=== PATIENT | female | born 1985 | race Caucasian/White ===

== ENCOUNTER 2017-08-25 09:29 | Day surgery (SDC) | payer OTHER ==
[~2017-08-25] VITALS: Ht 165.1 cm; Wt 109.0 kg
[~2017-08-25 09:29] MED LIST: BUPIVACAINE/PF-EPI 0.25% 1:200K ONE
[2017-08-25 09:55] VITALS: BP 119/79
[2017-08-25] MEDS ORDERED: LACTATED RINGERS 1,000 ML IV SCH ×2 (09:57→14:24)
[2017-08-25] MEDS ORDERED: FENTANYL PF 100 MCG/2ML ONE ×2 (10:25)
[2017-08-25] MEDS ORDERED: MIDAZOLAM 1 MG/ML, 2ML ONE (10:25)
[2017-08-25] MEDS ORDERED: BUPR-86 PO (10:30)
[2017-08-25] MEDS ORDERED: CETI10CA PO (10:30)
[2017-08-25] MEDS ORDERED: PLEASE ENTER HEIGHT AND WEIGHT MC SCH (10:30)
[2017-08-25 11:17] LABS: HCG UR OBC PASS
[2017-08-25 11:25] LABS: HEMATOCRIT 41.1 % (34.6-47.8); HEMOGLOBIN 13.8 g/dL (11.7-16.4); WHITE BLOOD COUNT 5.8 x10^3/uL (3.4-10)
[2017-08-25] MEDS ORDERED: SCOPOLAMINE PATCH, 1.5MG PATCH.TD72 TD ONE (11:47)
[2017-08-25] MEDS ORDERED: ACETAMINOPHEN 500 MG TABLET ONE (11:47)
[2017-08-25] MEDS ORDERED: KETOROLAC 30 MG/1 ML ONE (12:00)
[2017-08-25] MEDS ORDERED: ONDANSETRON 2MG/ML, 2ML ONE (12:00)
[2017-08-25] MEDS ORDERED: NEOSTIGMINE 1 MG/ML, 10ML ONE (12:00)
[2017-08-25] MEDS ORDERED: DEXAMETHASONE 4 MG/ML, 1ML ONE (12:00)
[2017-08-25] MEDS ORDERED: PROPOFOL 10 MG/ML, 20ML ONE (12:00)
[2017-08-25] MEDS ORDERED: SUCCINYLCHOLINE 20 MG/ML, 10ML ONE (12:00)
[2017-08-25] MEDS ORDERED: ROCURONIUM 10 MG/ML ONE (12:00)
[2017-08-25] MEDS ORDERED: GLYCOPYRROLATE 0.2MG/1ML, 5ML ONE (12:00)
[2017-08-25] MEDS ORDERED: CEFAZOLIN 1,000 MG ONE (12:00)
[2017-08-25] MEDS ORDERED: MEPERIDINE/PF 25MG/0.5ML IVPush PRN (12:30)
[2017-08-25] MEDS ORDERED: EPHEDRINE 50 MG/ML, 1ML IVPush PRN (12:30)
[2017-08-25] MEDS ORDERED: ONDANSETRON 2MG/ML, 2ML IVPush PRN ×2 (12:30→14:30)
[2017-08-25] MEDS ORDERED: METOPROLOL 1 MG/ML, 5ML IV PRN (12:30)
[2017-08-25] MEDS ORDERED: OXYcodone 5 MG/5 ML ORAL.SOL UDC PO PRN (12:30)
[2017-08-25] MEDS ORDERED: HYDROmorphone 1 MG/ML, 1ML IV PRN (12:30)
[2017-08-25] MEDS ORDERED: FENTANYL PF 100 MCG/2ML IV PRN (12:30)
[2017-08-25] MEDS ORDERED: PROMETHAZINE 25 MG/ML, 1ML IV PRN (12:30)
[2017-08-25] MEDS ORDERED: HYDROcodone/APAP 7.5-325MG/15ML UDC PO PRN (12:30)
[2017-08-25] MEDS ORDERED: ALBUTEROL SULFATE 2.5 MG/3 ML NPPB PRN (12:30)
[2017-08-25] MEDS ORDERED: LABETALOL 5MG/ML, 20ML IV PRN (12:30)
[2017-08-25] MEDS ORDERED: hydrALAzine 20 MG/ML, 1ML IV PRN (12:30)
[2017-08-25] MEDS ORDERED: DIAZEPAM 5 MG/ML, 2ML IVPush PRN (12:30)
[2017-08-25] MEDS ORDERED: SILVER NITRATE STICK TP ONE ×2 (13:14→13:19)
[2017-08-25] MEDS ORDERED: OXYcodone 5 MG/5 ML ORAL.SOL UDC ONE (13:24)
[2017-08-25] MEDS ORDERED: IBUPROFEN 600 MG TABLET PO PRN (14:30)
[2017-08-25] MEDS ORDERED: HYDROcodone/APAP 5/325 TABLET PO PRN (14:30)
[2017-08-25] MEDS ORDERED: PROMETHAZINE 25 MG SUPP PR ONE (14:30)
== END 2017-08-25 17:46 ==
LOC: OUT 09:29
PROVIDERS: ATTEND Obstetrics & Gynecology Female Pelvic Medicine and Reconstructive Surgery
DX: Z30.2 Encounter for sterilization (principal); N94.6 Dysmenorrhea, unspecified
CPT/HCPCS: 36415; 58563; 58670; 81025; 85025; 88305; J0330; J0690; J1100; J1885; J2250; J2405; J2704; J2710; J3010; J7120; J3490